=== PATIENT | female | born 1980 | race Asian ===

== ENCOUNTER 2021-03-08 14:17 | Emergency (ER) | payer OTHER ==
[~2021-03-08] VITALS: Ht 182.8 cm; Wt 92.2 kg
[2021-03-08] MEDS ORDERED: HYDROcodone/APAP 5 MG/325 MG (LORTAB) TAB PO ONE (15:00)
--- NOTE | 2021-03-08 15:11 | ED Integumentary General ---
General Chief Complaint: Skin/Wound Problems Stated Complaint: PAIN/LUMP ON FACE Nursing Triage Note: Patient presents to the ED with c/o left sided facial swelling and pain. She states that she had a small pimple that she picked at then put on a acne patch. Reports that the area has gotten bigger with redness and swelling extending from the area. Pain is increased with any movement of her jaw. Source: patient Exam Limitations: no limitations History of Present Illness Date Seen by Provider: Mar 08, 2021 Time Seen by Provider: 16:45 Initial Comments Patient is a 41-year-old female presents with left facial swelling pain and tenderness. Patient states she had here that she removed with needle-nose tweezers 2 days ago and is gradually developed a red swollen area with a guzman yesterday which he popped. It is gradually grown in size since then. She reports tenderness to palpation and during the eating. No trismus dysphonia or neck pain.. She denies fever chills, nausea vomiting or sweats. No other acute symptoms or complaints. Patient had a remaining Z-Rashid which she has taken. Timing/Duration: other (3 days) Severity: moderate Location: face Possible Cause: other Modifying Factors: improves with other Associated Symptoms: other Allergies and Home Medications Allergies Coded Allergies: No Known Drug Allergies (Unverified , 03/08/21) Patient Home Medication List Home Medication List Reviewed: Yes Review of Systems Review of Systems Constitutional: see HPI EENTM: other (Left submandibular pain tenderness swelling) Respiratory: see HPI Cardiovascular: see HPI Past Fllsego-Icspla-Szmvqk Hx Patient Social History Tobacco Use?: Yes Use of E-Cig and/or Vaping dev: Yes E-Cig or Vaping type used: Nicotine Substance use?: No Alcohol Use?: Yes Alcohol Frequency: Couple times a week Pt feels they are or have been: No Immunizations Up To Date First/Initial COVID19 Vaccinat: 2020 Second COVID19 Vaccination Sukhdev: 2020 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 No drainage, erythema warmth or drainage. No neck fullness or swelling. ) Neck: supple, other (No trismus, drooling hoarseness.) Cardiovascular: normal peripheral pulses Progress/Results/Core Measures Results/Orders My Orders Orders - RONNIE COFFEY DO Hydrocodone/Apap 5/325 Tablet (Lortab 5 (03/08/21 15:00) Vital Signs/I&O 03/08/21 14:26 Temp 35.9 Pulse 89 Resp 16 B/P (MAP) 174/98 (123) Pulse Ox 98 O2 Delivery Room Air Blood Pressure Mean: 123 Departure Communication (Admissions) Patient with submandibular soft tissue infection consistent with early abscess formation. Pain medication given in the emergency department. Patient instructed to fill antibiotics immediately after leaving the emergency department and take first dose. She is to apply warm compresses and take newly prescribed medications as directed. She is instructed to return to the ED in 2 days for reevaluation sooner if symptoms worsen. Patient verbalizes understanding agreement discharge instructions prior to partner. Impression Primary Impression: Facial infection Disposition: 01 HOME, SELF-CARE Condition: Stable Departure-Patient Inst. Decision time for Depature: 15:10 Referrals: NO,LOCAL PHYSICIAN (PCP/Family) Primary Care Physician Patient Instructions: Laceration Infection (DC) Add. Discharge Instructions: You were evaluated in the emergency department for early abscess formation of your left jaw region. Please take ibuprofen for pain hydrocodone as needed for additional relief and fill antibiotics and pain medications immediately after leaving the emergency department and take first dose of antibiotics. Apply warm compresses to affected area and return to the ED in 36 to 48 hours for reevaluation. Return sooner if symptoms significantly worsen. All discharge instructions reviewed with patient and/or family. Voiced und erstanding. Scripts Hydrocodone/Acetaminophen (Hydrocodone-Acetamin 5-325 mg) 1 Each Tablet 1 TAB PO Q4H PRN for PAIN-MODERATE (5-7), #10 TAB Prov: RONNIE COFFEY DO 03/08/21 Clindamycin HCl (Clindamycin HCl) 150 Mg Capsule 300 MG PO QID, #80 CAP Prov: RONNIE COFFEY DO 03/08/21 RONNIE COFFEY DO Mar 08, 2021 15:11
[2021-03-08] MEDS ORDERED: CLIN150C20 PO (15:13)
[2021-03-08] MEDS ORDERED: ACHD5005 PO (15:13)
[2021-03-08 15:31] VITALS: BP 154/90
== END 2021-03-08 15:31 | disposition home or self-care (01) ==
LOC: ER FS 14:19
DX: L08.9 Local infection of the skin and subcutaneous tissue, unspecified (principal); K12.2 Cellulitis and abscess of mouth; I10 Essential (primary) hypertension; F17.290 Nicotine dependence, other tobacco product, uncomplicated
CPT/HCPCS: 99281

== ENCOUNTER 2021-03-13 19:42 | Emergency (ER) | payer OTHER ==
[~2021-03-13] VITALS: Ht 182.8 cm; Wt 93.8 kg
[~2021-03-13 19:42] MED LIST: ACHD5005 PO; CLIN150C20 PO
--- NOTE | 2021-03-13 20:04 | ED General ---
General Chief Complaint: General Problems/Pain Stated Complaint: OVERHEATING,MIGRAINE,RAPID HEARTRATE Nursing Triage Note: Patient states she was seen in the ER on 03/08/21 for an infected pimple. Patient has an area on the left chin that she is referring to. Patient states she was put on clindamycin for an antibiotic and takes it as prescribed. Patient states that she feels like her neck and chin are swollen. states he "watched it swell over the last 2 hours". No major swelling to the neck/chin is noted. Patient states she is not having any trouble breathing or swallowing. Patient has not followed up with a physician since being seen in the ER on 03/08. Source of Information: Patient Exam Limitations: No Limitations History of Present Illness Date Seen by Provider: Mar 13, 2021 Time Seen by Provider: 19:48 Initial Comments 41yoF otherwise healthy that was seen on 03/08 for left jaw cellulitis and has been on clindamycin. Noticed increased in swelling this afternoon so wanted to be seen. Denies voice changes, neck pain, mouth pain, fever, or any other concerns. Allergies and Home Medications Allergies Coded Allergies: No Known Drug Allergies (Unverified , 03/08/21) Patient Home Medication List Home Medication List Reviewed: Yes Clindamycin HCl (Clindamycin HCl) 150 Mg Capsule, 300 MG PO QID Prescribed by: RONNIE COFFEY on 03/08/21 1513 Hydrocodone/Acetaminophen (Hydrocodone-Acetamin 5-325 mg) 1 Each Tablet, 1 TAB PO Q4H PRN for PAIN-MODERATE (5-7) Prescribed by: RONNIE COFFEY on 03/08/21 1513 Review of Systems Review of Systems Constitutional: No chills, No fever EENTM: No blurred vision Respiratory: No cough, No short of breath Cardiovascular: No chest pain Gastrointestinal: no symptoms reported Genitourinary: no symptoms reported Musculoskeletal: no symptoms reported Skin: rash Psychiatric/Neurological: No Symptoms Reported Hematologic/Lymphatic: No Symptoms Reported Immunological/Allergic: no symptoms reported All Other Systems Reviewed Negative Unless Noted: Yes Past Nhqhpfw-Hnzape-Ooppqe Hx Patient Social History Tobacco Use?: Yes Substance use?: No Alcohol Use?: Yes Alcohol type: Beer Alcohol Frequency: Daily Pt feels they are or have been: No Immunizations Up To Date First/Initial COVID19 Vaccinat: 2020 Second COVID19 Vaccination Sukhdev: 2020 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 oz. kg; 28.00 BMI Method: General Appearance: No Apparent Distress, WD/WN Eyes: Bilateral Eye Normal Inspection HEENT: PERRL/EOMI, Pharynx Normal, Other (Minimal amount of erythema on the left lateral jaw with some induration but no fluctuance or abscess felt, floor of the mouth is soft, tongue not elevated, no trismus, normal voice, no tenderness down neck or swelling noted) Neck: Full Range of Motion, Normal Inspection, Non Tender Respiratory: Chest Non Tender, Lungs Clear, Normal Breath Sounds, No Accessory Muscle Use, No Respiratory Distress Cardiovascular: Regular Rate, Rhythm, No Edema, Normal Peripheral Pulses Gastrointestinal: Normal Bowel Sounds, Non Tender, Soft; No Distended, No Guarding Back: Normal Inspection Extremity: Normal Capillary Refill, Normal Inspection, Normal Range of Motion, Non Tender, No Calf Tenderness, No Pedal Edema Neurologic/Psychiatric: Alert, No Motor/Sensory Deficits, Normal Mood/Affect Skin: Normal Color, Warm/Dry Lymphatic: No Adenopathy Progress/Results/Core Measures Suspected Sepsis SIRS Temperature: Pulse: 99 Respiratory Rate: 18 Laboratory Tests 03/13/21 20:22: White Blood Count 9.2 Blood Pressure 140 /98 Mean: 112 Laboratory Tests 03/13/21 20:22: Creatinine 0.51L, Platelet Count 331 Results/Orders Lab Results Laboratory Tests Test 03/13/21 20:22 Range/Units White Blood Count 9.2 4.3-11.0 10^3/uL Red Blood Count 4.79 3.80-5.11 10^6/uL Hemoglobin 13.1 11.5-16.0 g/dL Hematocrit 38 35-52 % Mean Corpuscular Volume 80 80-99 fL Mean Corpuscular Hemoglobin 27 25-34 pg Mean Corpuscular Hemoglobin Concent 34 32-36 g/dL Red Cell Distribution Width 12.6 10.0-14.5 % Platelet Count 331 130-400 10^3/uL Mean Platelet Volume 9.4 9.0-12.2 fL Immature Granulocyte % (Auto) 0 % Neutrophils (%) (Auto) 71 42-75 % Lymphocytes (%) (Auto) 18 12-44 % Monocytes (%) (Auto) 7 0-12 % Eosinophils (%) (Auto) 4 0-10 % Basophils (%) (Auto) 1 0-10 % Neutrophils # (Auto) 6.5 1.8-7.8 X 10^3 Lymphocytes # (Auto) 1.7 1.0-4.0 X 10^3 Monocytes # (Auto) 0.6 0.0-1.0 X 10^3 Eosinophils # (Auto) 0.3 0.0-0.3 10^3/uL Basophils # (Auto) 0.1 0.0-0.1 10^3/uL Immature Granulocyte # (Auto) 0.0 0.0-0.1 10^3/uL Sodium Level 130 L 135-145 MMOL/L Potassium Level 4.0 3.6-5.0 MMOL/L Chloride Level 96 L 98-107 MMOL/L Carbon Dioxide Level 21 21-32 MMOL/L Anion Gap 13 5-14 MMOL/L Blood Urea Nitrogen 7 7-18 MG/DL Creatinine 0.51 L 0.60-1.30 MG/DL Estimat Glomerular Filtration Rate 134 BUN/Creatinine Ratio 14 Glucose Level 287 H 70-105 MG/DL Calcium Level 9.3 8.5-10.1 MG/DL My Orders Orders - MARIELOS GUERRERO MD Basic Metabolic Panel (03/13/21 20:13) Cbc With Automated Diff (03/13/21 20:13) Ed Iv/Invasive Line Start (03/13/21 20:13) Urine Bedside (03/13/21 20:13) Ct Neck (Soft Tissue) W (03/13/21 20:13) Iohexol Injection (Omnipaque 350 Mg/Ml 1 (03/13/21 20:30) Received Contrast (Hold Metformin- Contr (03/13/21 20:30) Ns (Ivpb) (Sodium Chloride 0.9% Ivpb Bag (03/13/21 20:30) Medications Given in ED Current Medications Medications Dose Ordered Sig/Elliot Route Start Time Stop Time Status Last Admin Dose Admin Iohexol 75 ml ONCE ONCE IV 03/13/21 20:30 03/13/21 20:31 DC 03/13/21 20:33 75 ML Sodium Chloride 100 ml ONCE ONCE IV 03/13/21 20:30 03/13/21 20:31 DC 03/13/21 20:33 100 ML Vital Signs/I&O 03/13/21 03/13/21 19:45 21:15 Temp 36.8 Pulse 99 92 Resp 18 18 B/P (MAP) 140/98 (112) 153/92 Pulse Ox 98 99 O2 Delivery Room Air Room Air Capillary Refill : Less Than 3 Seconds Blood Pressure Mean: 112 Progress Note : Progress Note 41-year-old female with above history coming in due to concerns for worsening swelling in her jaw. ABCs were intact and vitals were stable on presentation. Physical exam with some submandibular induration but no fluctuance. The floor of mouth is soft, no significant neck tenderness. She voices concerns however that she feels like the swelling is going posterior. Because of this, IV was placed and basic labs were obtained including negative test and normal white blood cell count. CT soft tissue neck with contrast ordered showing no abscess, no Eddi's angina, and no other deeper infection. I believe the antibiotics are working. I believe she is also stable for discharge with outpatient follow-up. She was sent home with strict return precautions. Diagnostic Imaging Diagonstic Imaging: CT (soft tissue neck with contrast) Comments NAME: TONI SAMAYOA [facility] REC#: [id number] PT STATUS: REG ER : 1980 PHYSICIAN: MARIELOS GUERRERO MD ADMIT DATE: 03/13/21/ER FS Draft Date of Exam:03/13/21 CT NECK (SOFT TISSUE) W CLINICAL INDICATION: Patient was seen in the ER on 03/08/2021 for an infected pimple. Patient has an arrow on the left chin that she is referring to. Patient was put on antibiotics. Patient feels like her neck and chin are swollen. EXAM: Axial CT scan of the neck soft tissue performed with 75 mL of Omnipaque 350 IV contrast. Sagittal and coronal reformatted images are created. Auto Exposure Controls were utilized during the CT exam to meet ALARA standards for radiation dose reduction. COMPARISON: None. FINDINGS: There is a roughly 11 mm localized dense area in the skin and subcutaneous soft tissue in the anterior left submandibular region. There is adjacent fat stranding and mild adjacent soft tissue swelling seen. There is mild thickening of the soft tissue musculature adjacent to the region. There is no drainable fluid collection seen. There is no adjacent bony erosive or destructive process. The nasopharynx, oropharynx, hypopharynx and laryngeal soft tissue structures are unremarkable. Salivary glands and thyroid gland are unremarkable. There are multiple lymph nodes in the bilateral level 1 and level 2 regions, the largest measuring roughly 10 mm x 7 mm in the left submandibular region. These lymph nodes are likely reactive. Remainder of the neck soft tissue structures are unremarkable. Visualized upper lung cartagena are clear. Visualized portions of the sublingual, tongue regions are unremarkable. There is reversal of the cervical spine posture noted. There is cervical spine degenerative disease or vertebral body spurs at the C4-C5 and C5-C6 levels. Limited visualization of intracranial structures are unremarkable. Paranasal sinuses and mastoid air cells are clear. IMPRESSION: 1: There is a rounded dense area in the cutaneous and subcutaneous region of the anterior left submandibular region which may be related to patient's infected pimple. There is mild adjacent fat stranding. There is no evidence of abscess or fluid collection. There is no evidence of Eddi's angina. 2: Likely reactive lymph nodes in the submandibular regions. Dictated on workstation # [id number] Dict: 03/13/[id number] Trans: 03/13/[id number] [facility] [id number] Interpreted by: AIYANA SCHAFER MD Electronically signed by: Departure Impression Primary Impression: Facial cellulitis Disposition: 01 HOME, SELF-CARE Condition: Stable Departure-Patient Inst. Decision time for Depature: 21:04 Referrals: NO,LOCAL PHYSICIAN (PCP/Family) Primary Care Physician Patient Instructions: Cellulitis (Skin Infection), Adult (DC) Add. Discharge Instructions: Your skin infection does not have anything deeper including no abscess anywhere else. There is no significant swelling except for that little bit where your pimple was. This does not appear to be improving. Continue antibiotics, and take ibuprofen for pain or fever. MARIELOS GUERRERO MD Mar 13, 2021 20:04
[2021-03-13 20:28] LABS: HEMATOCRIT 38 % (35-52); HEMOGLOBIN 13.1 g/dL (11.5-16.0); MEAN CORPUSCULAR HEMOGLOBIN 27 pg (25-34); MEAN CORPUSCULAR HGB CONC 34 g/dL (32-36); MEAN CORPUSCULAR VOLUME 80 fL (80-99); MEAN PLATELET VOLUME 9.4 fL (9.0-12.2); NEUTROPHILS % (AUTO) 71 % (42-75); PLATELET COUNT 331 10^3/uL (130-400); WHITE BLOOD COUNT 9.2 10^3/uL (4.3-11.0)
[2021-03-13 20:29] LABS: BASOPHILS # (AUTO) 0.1 10^3/uL (0.0-0.1); BASOPHILS % (AUTO) 1 % (0-10); EOSINOPHILS # (AUTO) 0.3 10^3/uL (0.0-0.3); EOSINOPHILS % (AUTO) 4 % (0-10); LYMPHOCYTES # (AUTO) 1.7 X 10^3 (1.0-4.0); LYMPHOCYTES % (AUTO) 18 % (12-44); MONOCYTES # (AUTO) 0.6 X 10^3 (0.0-1.0); MONOCYTES % (AUTO) 7 % (0-12); NEUTROPHILS # (AUTO) 6.5 X 10^3 (1.8-7.8)
[2021-03-13] MEDS ORDERED: NS 100 ML (IVPB) BAG IV ONE (20:30)
[2021-03-13] MEDS ORDERED: HOLD METFORMIN - RECEIVED CONTRAST 20 ML VIAL IV SCH (20:30)
[2021-03-13] MEDS ORDERED: IOHEXOL 350 MG/ML 100 ML (OMNIPAQUE 350) VIAL IV ONE (20:30)
[2021-03-13 20:45] LABS: CALCIUM 9.3 MG/DL (8.5-10.1); CREATININE SERUM 0.51 MG/DL (0.60-1.30)
--- NOTE | 2021-03-13 20:59 | Diagnostic Imaging Report ---
CLINICAL INDICATION: Patient was seen in the ER on 03/08/2021 for an infected pimple. Patient has an arrow on the left chin that she is referring to. Patient was put on antibiotics. Patient feels like her neck and chin are swollen. EXAM: Axial CT scan of the neck soft tissue performed with 75 mL of Omnipaque 350 IV contrast. Sagittal and coronal reformatted images are created. Auto Exposure Controls were utilized during the CT exam to meet ALARA standards for radiation dose reduction. COMPARISON: None. FINDINGS: There is a roughly 11 mm localized dense area in the skin and subcutaneous soft tissue in the anterior left submandibular region. There is adjacent fat stranding and mild adjacent soft tissue swelling seen. There is mild thickening of the soft tissue musculature adjacent to the region. There is no drainable fluid collection seen. There is no adjacent bony erosive or destructive process. The nasopharynx, oropharynx, hypopharynx and laryngeal soft tissue structures are unremarkable. Salivary glands and thyroid gland are unremarkable. There are multiple lymph nodes in the bilateral level 1 and level 2 regions, the largest measuring roughly 10 mm x 7 mm in the left submandibular region. These lymph nodes are likely reactive. Remainder of the neck soft tissue structures are unremarkable. Visualized upper lung cartagena are clear. Visualized portions of the sublingual, tongue regions are unremarkable. There is reversal of the cervical spine posture noted. There is cervical spine degenerative disease or vertebral body spurs at the C4-C5 and C5-C6 levels. Limited visualization of intracranial structures are unremarkable. Paranasal sinuses and mastoid air cells are clear. IMPRESSION: 1: There is a rounded dense area in the cutaneous and subcutaneous region of the anterior left submandibular region which may be related to patient's infected pimple. There is mild adjacent fat stranding. There is no evidence of abscess or fluid collection. There is no evidence of Eddi's angina. 2: Likely reactive lymph nodes in the submandibular regions. Dictated by: Dictated on workstation # [id number]
[2021-03-13 21:15] VITALS: BP 153/92
== END 2021-03-13 21:15 | disposition home or self-care (01) ==
LOC: EDUNIT# 19:42 → ER FS 19:43
DX: L03.211 Cellulitis of face (principal); I10 Essential (primary) hypertension; Z72.0 Tobacco use
CPT/HCPCS: 36415; 70491; 80048; 84703; 85025